=== PATIENT | female | born 1985 | race Caucasian/White ===

== ENCOUNTER → 2018-07-27 17:13 | Outpatient (CLI) | payer OTHER, SELFPAY ==
[2018-07-27 17:41] LABS: Add Manual Diff / Slide Review NO; Basophils Percent Auto 0.5 % (0-2); Hematocrit 42.1 % (36-46); Hemoglobin 14.2 g/dL (12.0-16.0); Lymphocytes Percent Auto 24.5 % (25-40); Mean Corpuscular HGB Conc 33.8 % (30-36); Mean Corpuscular Volume 88.8 fL (80-100); Neutrophils Absolute Auto 5500 /uL (3000-5900); Platelet Count 296 X10^3/uL (150-400); Red Blood Cell Count 4.74 X10^6/uL (4.0-5.2); Red Cell Distribution Width 13.6 % (11.6-14.8)
[2018-07-27 18:36] LABS: Vitamin D 25 Hydroxy (D3) 37.2 ng/mL (30.0-100.0)
[2018-07-27 18:49] LABS: Thyroid Stimulating Hormone 1.22 uIU/mL (0.47-4.68)
== END ==
PROVIDERS: PCP Specialist; Visit Provider Specialist
DX: N92.0 Excessive and frequent menstruation with regular cycle (principal); R42 Dizziness and giddiness; R53.83 Other fatigue
CPT/HCPCS: 36415; 82306; 84439; 84443; 85025

== ENCOUNTER → 2024-02-16 12:08 | Outpatient (CLI) | payer OTHER, SELFPAY ==
--- NOTE | 2024-02-16 12:10 | DI.US.S_ITS ---
PROCEDURE: US PELVIC COMPLETE INDICATIONS: PAIN; HISTORY OF FIBROIDS TECHNIQUE: Real-time scanning was performed of the pelvic organs, with image documentation. Additional endovaginal scanning was necessary due to incomplete visualization of the adnexal and endometrial structures by transabdominal scanning. COMPARISON: [facility], US, US PELVIC COMPLETE, 01/15/2019, 13:58. FINDINGS: Uterus: Uterus is retroverted and normal in size at 5.7 x 4.4 x 6 point cm. The myometrium is homogeneous. The endometrium measures 5.2 mm combined thickness. Mid anterior intramural fibroid measuring 1.7 x 1.3 x 1.7 cm. Ovaries: The right ovary measures 2.4 x 1.1 x 1.0 cm, with a calculated ovarian volume of 1.4 cc. The left ovary measures 2.5 x 1.3 x 0.9 cm, with a calculated ovarian volume of 1.5 cc. The ovaries have a normal sonographic appearance. Less than 12 follicles can be seen in each ovary. No adnexal masses are seen. Other: No pathologic free abdominal or pelvic fluid. IMPRESSION: Intramural fibroid measuring 1.7 cm. Otherwise, normal appearance of the uterus and ovaries. We strive to produce accurate, complete, and clear reports of imaging services. To assist us in improving patient care, this report was composed using standard report templates and voice recognition software. Therefore, it may contain abnormal punctuation, insertions and/or omissions. Occasional wrong-word or sound-alike substitutions may occur. Though we review the report and make efforts to correct it, we do recommend that the report be read carefully in proper context to recognize any text inaccuracies. Dictated by: Xander Sanchez M.D. on 02/16/2024 at 14:55 Approved by: Xander Sanchez M.D. on 02/16/2024 at 14:57
== END ==
LOC: US 12:09
PROVIDERS: PCP Specialist; Referring Provider Physician Assistant Medical; Visit Provider Physician Assistant Medical
DX: D25.1 Intramural leiomyoma of uterus (principal); R10.2 Pelvic and perineal pain
CPT/HCPCS: 76830; 76856; 93975

== ENCOUNTER → 2024-11-08 12:09 | Outpatient (CLI) | payer OTHER, SELFPAY ==
--- NOTE | 2024-11-08 12:11 | DI.US.S_ITS ---
PROCEDURE: US PELVIC COMPLETE INDICATIONS: Pelvic pain/fibroids TECHNIQUE: Real-time scanning was performed of the pelvic organs, with image documentation. Additional endovaginal scanning was necessary due to incomplete visualization of the adnexal and endometrial structures by transabdominal scanning. COMPARISON: [facility], US, US PELVIC COMPLETE, 02/16/2024, 12:15. FINDINGS: Uterus: Uterus is retroverted and at the upper limits of normal in size at 10.6 x 4.9 x 5.8 cm. The myometrium is homogeneous. There is a subserosal fibroid in the anterior midportion measuring about 2.0 x 1.8 x 1.0 cm. No increased vascular flow.. The endometrium measures 10 mm combined thickness. Mild amount of simple fluid is seen in the endocervix. There are numerous small to both insists is well as mildly increased vascularity within the cervix. Ovaries: The right ovary measures 3.7 x 2.7 x 2.6 cm, with a calculated ovarian volume of 13.6 cc. The left ovary measures 2.5 x 2.5 x 1.4 cm, with a calculated ovarian volume of 4.6 cc. The ovaries have a normal sonographic appearance. There is a simple, unilocular follicle measuring 3.1 x 2.5 x 2.3 cm in the right ovary. Normal left ovary. No adnexal masses are seen. Other: No pathologic free abdominal or pelvic fluid. IMPRESSION: Retroverted uterus with a single fibroid, similar size compared to the prior exam. Increased vascularity and fluid within the cervix. This is nonspecific. Correlate with any atypia on Pap smear. Dominant left ovarian follicle measuring 3.1 cm. We strive to produce accurate, complete, and clear reports of imaging services. To assist us in improving patient care, this report was composed using standard report templates and voice recognition software. Therefore, it may contain abnormal punctuation, insertions and/or omissions. Occasional wrong-word or sound-alike substitutions may occur. Though we review the report and make efforts to correct it, we do recommend that the report be read carefully in proper context to recognize any text inaccuracies. Dictated by: Stacie hCild M.D. on 11/08/2024 at 20:40 Approved by: Stacie Child M.D. on 11/08/2024 at 20:48
== END ==
PROVIDERS: PCP Family Medicine; Referring Provider Obstetrics & Gynecology; Visit Provider Obstetrics & Gynecology
DX: D25.2 Subserosal leiomyoma of uterus (principal); D25.0 Submucous leiomyoma of uterus; N94.4 Primary dysmenorrhea; R10.2 Pelvic and perineal pain
CPT/HCPCS: 76830; 76856

== ENCOUNTER → 2025-08-01 12:06 | Outpatient (CLI) | payer OTHER, SELFPAY ==
--- NOTE | 2025-08-01 12:08 | DI.US.S_ITS ---
PROCEDURE: US PELVIC COMPLETE INDICATIONS: pelvic pain TECHNIQUE: Real-time scanning was performed of the pelvic organs, with image documentation. Additional endovaginal scanning was necessary due to incomplete visualization of the adnexal and endometrial structures by transabdominal scanning. COMPARISON: [facility], , PELVIC COMPLETE, 11/08/2024, 12:27. FINDINGS: Uterus: Retroverted. 8.2 x 6.2 x 5 cm. The endometrium measures 8 mm within normal limits for age. Increased size of an intramural anterior fibroid measuring 2.8 x 2.7 cm previously 2 x 1.8 cm. Cervical nabothian cysts are present. Endocervical fluid also seen. Possible solid structure at the posterior endocervical wall measuring 1.5 x 0.8 cm. Ovaries: Right ovary is nonenlarged at 9 mL. Left ovary is prominent at 10 mL. Right adnexal cyst with multiple septations is seen measuring 2.2 x 1.9 cm. Left ovarian follicular cyst is seen measuring 2.5 cm. Other: No pathologic free abdominal or pelvic fluid. IMPRESSION: Mild endocervical fluid. Within the posterior endocervix, there is a soft tissue structure measuring 1.5 x 0.8 cm. Consider direct visualization and/or follow- up imaging. Endometrium is nonthickened for age. Right ovarian septated cyst measures up to 2.2 cm. Consider 1-2 month follow-up to reassess stability/resolution of this finding. Anterior intramural uterine fibroid is slightly increased in size. Dictated by: Wilmer Zuñiga M.D. on 08/01/2025 at 13:45 Approved by: Wilmer Zuñiga M.D. on 08/01/2025 at 13:48
== END ==
PROVIDERS: PCP Family Medicine; Referring Provider Obstetrics & Gynecology; Visit Provider Obstetrics & Gynecology
DX: R10.20 Pelvic and perineal pain unspecified side (principal); D25.1 Intramural leiomyoma of uterus; N88.8 Other specified noninflammatory disorders of cervix uteri; N83.02 Follicular cyst of left ovary; N83.291 Other ovarian cyst, right side; Z86.018 Personal history of other benign neoplasm
CPT/HCPCS: 76830; 76856